=== PATIENT | male | born 1945 | race Caucasian/White ===

== ENCOUNTER 2022-06-23 09:16 | Emergency (ER) | payer MEDICARE, SELFPAY ==
--- NOTE | ~2022-06-23 | XR_ITS ---
EXAMINATION: XR HIP, LEFT , AP pelvis CLINICAL INFORMATION: Pain COMPARISON: None available at the time of this dictation. TECHNIQUE: Frontal and lateral views of the hip acquired. , AP pelvis FINDINGS: There is no evidence of acute fracture or dislocation. There are mild degenerative arthritic changes of the hip evident by sclerotic changes of the acetabular roof and narrowing of the joint space. Mild degenerative changes of the symphysis pubis. Mild degenerative changes of the SI joints. Adjacent pubic rami are intact. Surrounding soft tissues are unremarkable. XR/XR hip LT min 2V IMPRESSION: Mild degenerative arthritis. .
[2022-06-23 09:25] VITALS: BMI 20.9
[2022-06-23 09:37] VITALS: BP 167/97; PULSE 91; RESP 18; TEMP 37; O2SAT 98
--- NOTE | 2022-06-23 10:07 | ED.LOWEXIN ---
HPI - Extremity Injury (Lower) General Chief Complaint: Extremity Injury, Lower Stated Complaint: HIP PAIN S/P FALL DAYS AGO PER EMS Time Seen by Provider: 06/23/22 09:24 Source: patient Mode of arrival: EMS Limitations: no limitations History of Present Illness HPI Narrative: patient is a 76-year-old male who presents to the emergency department via EMS. Patient reports that approximately 3 days ago he felt his left hip give out, he developed shooting pain to the left hip and down the leg. This self-resolved after a few minutes. Today he contacted his doctor's office to make them aware what had happened, their office is closed today, and he was advised to come to go to the hospital to have an x-ray obtained. At this time patient denies any pain, numbness, tingling, weakness. Has been ambulatory at home without any difficulty. Has not taken any OTC pain medication. Patient does report A history of arthritis Related Data Allergies Allergy/AdvReac Type Severity Reaction Status Date / Time No Known Allergies Allergy Verified 06/23/22 09:32 Review of Systems Review of Systems: musculoskeletal: positive history of left hip pain as noted in HPI Yes all other systems are reviewed and are negative [facility] Past Medical History Attestation statement: The following information was validated with the patient. Source: old records reviewed Social History Social History Advance Directives: Yes Advance Directives Information Provided: No Advance Directives on File: No Physical Exam Vital Signs: Vital Signs: Last Vital Signs Temp 98.6 F 06/23/22 09:37 Pulse 91 06/23/22 09:37 Resp 18 06/23/22 09:37 BP 167/97 H 06/23/22 09:37 Pulse Ox 98 06/23/22 09:37 O2 Del Method 06/23/22 09:37 BMI result Body Mass Index 20.9 Appearance: Alert.?Oriented to person, place and time. No acute distress.?Normal affect. Eyes: Pupils equal, round and reactive to light.? ENT: Pharynx normal.?? Neck: Normal inspection.? Neck supple.?? CVS: Heart sounds normal. Normal heart rate and rhythm.? Pulses normal.?? Respiratory: No respiratory distress.? Lung sounds clear to auscultation bilaterally?? Abdomen: Soft and non-tender. ?? Skin: Skin warm and dry.? Normal skin color.? ? Extremities: No lower extremity edema.? No calf ttp? full AROM to the bilateral hips. 2+ DP/PT pulse bilaterally. Neuro: Moves all extremities spontaneously. Sensation intact bilaterally. No focal neuro deficits. Ambulates with normal steady gait. Medical Decision Making Medical Decision Making MDM Narrative: Patient is a 76-year-old male with a past medical history of arthritis who presents to the emergency department via EMS for evaluation of left hip pain as noted in HPI. At the time of examination patient is without any pain. Has full range of motion intact to left hip, extremity is neurovascularly intact distally. ambulatory with a steady gait. Patient was advised by primary care provider to present to the hospital to obtain x-ray imaging. obtained XR imaging of the left hip/ pelvis; No acute fracture or dislocation, consistent with arthritis. Patient is stable for discharge at this time, recommended the use of acetaminophen as needed for pain, outpatient follow-up with primary care provider. reviewed worrisome signs and symptoms that would warrant re-evaluation in the emergency department. All questions answered. Differential Diagnosis Differential Diagnoses: The differential diagnosis associated with the presentation includes ( arthritis, fracture, dislocation.) Independent Interpretation I performed an independent interpretation of an: Plain X-Ray Interpretation: I have personally interpreted the left hip x-ray and agree with radiologist impression. Radiology Impression Discussion of test interpretation with radiology: I have reviewed the radiologist's reading. Radiologist Impression: XR/XR hip LT min 2V IMPRESSION: Mild degenerative arthritis. Prescription Management I considered prescription management with: Pain Medication ( I considered pain medication however at this time patient is pain-free, recommended the use of OTC Tylenol) Chronic Conditions Patient?s care impacted by: Other ( arthritis) Discharge Plan Discharge Clinical Impression: Arthritis of left hip Patient Disposition: Home, Self-Care Instructions: Osteoarthritis (ED) Additional Instructions: You can take Tylenol 500 mg, 2 tablets (1,000mg) every 4-6 hours as needed for pain, but not to exceed 3 doses daily (3,000mg).? Follow-up with your primary care for persistent symptoms. Return to the emergency department with any new or worsening symptoms or concerns. Referrals: Jess Chandler FNP [Primary Care Provider] -
--- NOTE | 2022-06-23 11:21 | PC.NURSE ---
TAX EVALUATOR and ED attending notified patient wishes to leave long term staff called to pick him up.
--- NOTE | 2022-06-23 11:24 | PC.NURSE ---
Patient has been ambulatory independently about the ED will CTM until patient leaves department.
== END 2022-06-23 11:37 | disposition home or self-care (01) ==
PROVIDERS: Emergency Provider Student in an Organized Health Care Education/Training Program; PCP Nurse Practitioner Family
DX: M16.12 Unilateral primary osteoarthritis, left hip (principal); M25.552 Pain in left hip
CPT/HCPCS: 73502; 99283; 99284